=== PATIENT | female | born 1985 | race African-American/Black ===

== ENCOUNTER 2020-06-13 16:54 | Emergency (ER) | payer SELFPAY ==
--- NOTE | 2020-06-13 17:07 | EDM.PDOC ---
ED HPI GENERAL MEDICAL PROBLEM - General Chief Complaint: Neuro Symptoms/Deficits Stated Complaint: LEFT EAR INFECTION Time Seen by Provider: 06/13/20 16:59 - History of Present Illness INITIAL COMMENTS - FREE TEXT/NARRATIVE: History of present illness: Patient presents with 2 days of congestion runny nose and ear pain this morning she awoke with some weakness in the left side of her face. She has partial movement of the face but it is difficult for her to smile close her left eye or to wrinkle up her left eyebrow. No other weakness no other complaints nothing seems to make it better or worse she saw her primary care practitioner who brought her over here for a CT of the brain. Very clearly this is not a stroke. Review of systems: As per history of present illness and below otherwise all systems reviewed and negative. Past medical history: As per history of present illness and as reviewed below otherwise noncontributory. Surgical history: As per history of present illness and as reviewed below otherwise no ncontributory. Social history: No reported history of drug or alcohol abuse. Family history: As per history of present illness and as reviewed below otherwise noncontributory. Physical exam: HEENT: Atraumatic, normocephalic, pupils reactive, negative for conjunctival pallor or scleral icterus, mucous membranes moist, throat clear, neck supple, nontender, trachea midline. Lungs: Clear to auscultation, breath sounds equal bilaterally, chest nontender. Heart: S1S2, regular, negative for clicks, rubs, or JVD. Abdomen: Soft, nondistended, nontender. Negative for masses or hepatosplenomegaly. Negative for costovertebral tenderness. Pelvis: Stable nontender. Genitourinary: Deferred. Rectal: Deferred. Extremities: Atraumatic, negative for cords or calf pain. Neurovascular unremarkable. Neuro: Awake, alert, oriented. Cranial nerves II through XII unremarkable. Cerebellum unremarkable. Motor and sensory unremarkable throughout. Exam nonfocal. Complete partial left-sided facial nerve palsy that does not spare the forehead there is no pronator drift there is no ataxia other cranial nerves are completely intact Diagnostics: [] Therapeutics: [] Impression: Hartley's palsy Plan: Patient was started on acyclovir prednisone and Lacri-Lube she is counseled on how to take care of her eye during sleep and during the day she is also counseled that this may last for approximately 1 month will follow up with her primary care practitioner. [] Definitive disposition and diagnosis as appropriate pending reevaluation and review of above. - Related Data Home Meds: Home Meds Acyclovir 800 mg PO 5XDAY #50 tablet 06/13/20 [Rx] Mineral Oil/Petrolatum Oint [Lacri-Lube S.O.P Oint] 1 applic OP BEDTIME #1 tube 06/13/20 [Rx] predniSONE 60 mg PO WITHBREAKFAST 5 Days #15 tab 06/13/20 [Rx] ED ROS GENERAL - Review of Systems Review Of Systems: See Below ED EXAM, GENERAL - Physical Exam Exam: See Below Departure - Departure Time of Disposition: 17:06 Disposition: Home, Self-Care 01 Condition: Good Clinical Impression: Hartley's palsy - Discharge Information *PRESCRIPTION DRUG MONITORING PROGRAM REVIEWED*: Not Applicable *COPY OF PRESCRIPTION DRUG MONITORING REPORT IN PATIENT ASHLEY: Not Applicable Prescriptions: Acyclovir 800 mg PO 5XDAY #50 tablet Mineral Oil/Petrolatum Oint [Lacri-Lube S.O.P Oint] 1 applic OP BEDTIME #1 tube predniSONE 60 mg PO WITHBREAKFAST 5 Days #15 tab Instructions: Hartley Palsy, Adult Additional Instructions: Large the following information is given to patients seen in the emergency department who are being discharged to home. This information is to outline your options for follow-up care. We provide all patients seen in our emergency department with a follow-up referral. The need for follow-up, as well as the timing and circumstances, are variable depending upon the specifics of your emergency department visit. If you don't have a primary care physician on staff, we will provide you with a referral. We always advise you to contact your personal physician following an emergency department visit to inform them of the circumstance of the visit and for follow-up with them and/or the need for any referrals to a consulting specialist. The emergency department will also refer you to a specialist when appropriate. This referral assures that you have the opportunity for follow-up care with a specialist. All of these measure are taken in an effort to provide you with optimal care, which includes your follow-up. Under all circumstances we always encourage you to contact your private physician who remains a resource for coordinating your care. When calling for follow-up care, please make the office aware that this follow-up is from your recent emergency room visit. If for any reason you are refused follow-up, please contact the [facility] at and asked to speak to the emergency department charge nurse.
== END 2020-06-13 17:20 | disposition home or self-care (01) ==
LOC: MW.ED 16:54
DX: G51.0 Bell's palsy (principal)
CPT/HCPCS: 99282; 99283